=== PATIENT | female | born 1995 | race American Indian/Alaskan Native ===

== ENCOUNTER 2017-12-26 14:31 | Emergency (ER) | payer OTHER ==
--- NOTE | 2017-12-26 16:32 | C.PDOC ---
History Of Present Illness 22 year old female presents to the emergency department with complaints of abdominal cramping and pain associated with nausea and diarrhea for the last week. Patient also reports having vaginal spotting. Patient states that her symptoms began when she sought treatment for her left shoulder cervical radiculopathy She states that she was evaluated by her [employer] Dr. Rashawn Dumont, who suggested that she present to the ED. Time Seen by Provider: 12/26/17 15:45 Chief Complaint (Nursing): Female Genitourinary History Per: Patient History/Exam Limitations: no limitations Onset/Duration Of Symptoms: Days (7) Current Symptoms Are (Timing): Still Present Quality Of Discomfort: Cramping, "Pain" Associated Symptoms: Other (vaginal spotting, cervical radiculopathy) Past Medical History Reviewed: Historical Data, Nursing Documentation, Vital Signs Vital Signs: Last Vital Signs Temp 98.6 F 12/26/17 14:40 Pulse 98 H 12/26/17 14:40 Resp 20 12/26/17 14:40 BP 152/96 H 12/26/17 14:40 Pulse Ox 93 L 12/26/17 18:09 - Medical History PMH: No Chronic Diseases Surgical History: No Surg Hx Family History: States: No Known Family Hx - Social History Hx Alcohol Use: Yes Hx Substance Use: No - Immunization History Hx Tetanus Toxoid Vaccination: Yes Hx Influenza Vaccination: Yes Hx Pneumococcal Vaccination: No Review Of Systems Except As Marked, All Systems Reviewed And Found Negative. Gastrointestinal: Positive for: Abdominal Pain (cramping) Genitourinary: Positive for: Vaginal Bleeding Musculoskeletal: Positive for: Other (left shoulder cervical radiculopathy) Physical Exam - Physical Exam Appears: Non-toxic, No Acute Distress Skin: Warm, Dry Head: Atraumatic, Normacephalic Eye(s): bilateral: Normal Inspection Neck: Normal, Supple Chest: Symmetrical, No Tenderness Cardiovascular: Rhythm Regular, No Murmur Respiratory: Normal Breath Sounds, No Rales, No Rhonchi, No Wheezing Gastrointestinal/Abdominal: Soft, Tenderness (suprapubic), No Guarding, No Rebound Extremity: No Normal ROM (left shoulder and arm ROM limited due to pain) ED Course And Treatment - Laboratory Results Result Diagrams: 12/26/17 17:02 12/26/17 17:02 O2 Sat by Pulse Oximetry: 93 (RA) - CT Scan/US US Transvag Other Rad Studies (CT/US): Read By Radiologist, Radiology Report Reviewed CT/US Interpretation: IMPRESSION: Unremarkable pelvic ultrasound. Medical Decision Making Medical Decision Making: Assessment: DUB Plan: CMP Lipase CBC Urine Culture Urinalysis US Pelvis Repeat pulse ox 96% Spoke to Dr. Rashawn Dumont who requests an ultrasound. Ultrasound no acute pathology. Patient discharged home to follow up with Dr. Rashawn Dumont. Disposition Discussed With Dr.: Kaylyn Dumont Doctor Will See Patient In The: Office Counseled Patient/Family Regarding: Studies Performed, Diagnosis, Need For Followup - Disposition Referrals: Kaylyn Dumont MD [Staff Provider] - Disposition: HOME/ ROUTINE Disposition Time: 18:50 Condition: STABLE Additional Instructions: follow up with Dr. Rashawn Dumont within 2 days call to make an appointment continue medications return to ER if symptoms worsens or progress Instructions: Heavy Periods (DC) Forms: [facility] ([place]), General Discharge Instructions - Clinical Impression Clinical Impression: DUB (dysfunctional uterine bleeding) - Scribe Statement The provider has reviewed the documentation as recorded by the Scribe (Dale Zaldivar) Provider Attestation: All medical record entries made by the Scribe were at my direction and personally dictated by me. I have reviewed the chart and agree that the record accurately reflects my personal performance of the history, physical exam, medical decision making, and the department course for this patient. I have also personally directed, reviewed, and agree with the discharge instructions and disposition.
[2017-12-26 17:08] LABS: EOS % 0.9 % (0.0-4.0); HEMOGLOBIN 13.4 g/dL (11.0-16.0); LYMPH # 1.8 K/uL (1.0-4.3); LYMPH % 39.6 % (20.0-40.0); MEAN CELL VOLUME 86.5 fL (81.0-99.0); MEAN CORPUSCULAR HEMOGLOBIN 29.2 pg (27.0-31.0); MEAN CORPUSCULAR HGB CONC 33.8 g/dL (33.0-37.0); MEAN PLATELET VOLUME 9.3 fL (7.2-11.7); MONO # 0.4 K/uL (0.0-0.8); MONO % 8.9 % (0.0-10.0); NEUT # 2.3 K/uL (1.8-7.0); NEUT % 49.6 % (50.0-75.0); NRBC % 0.1 % (0.0-2.0); RBC 4.58 Mil/uL (3.80-5.20); RED CELL DISTRIBUTION WIDTH 12.5 % (11.5-14.5); WHITE BLOOD COUNT 4.7 K/uL (4.8-10.8)
[2017-12-26 17:24] LABS: ALBUMIN 4.7 g/dL (3.5-5.0); ALT/SGPT 20 U/L (9-52); AST/SGOT 16 U/L (14-36); BLOOD UREA NITROGEN 8 mg/dL (7-17); CALCIUM 9.6 mg/dl (8.6-10.4); GFR NON-AFRICAN AMERICAN > 60; LIPASE 95 U/L (23-300)
[2017-12-26 17:45] LABS: SQUAMOUS EPITHIAL 1 /hpf (0-5); URINE BACTERIA RARE (<OCC); URINE BILIRUBIN NEGATIVE (NEGATIVE); URINE CLARITY Clear (Clear); URINE COLOR Yellow (YELLOW); URINE GLUCOSE (UA) NORMAL (Normal); URINE LEUKOCYTE ESTERASE NEG Leu/uL (Negative); URINE PROTEIN NEGATIVE (NEGATIVE); URINE UROBILINOGEN NORMAL mg/dL (0.2-1.0)
[2017-12-26 17:56] LABS: URINE BLOOD 1+ (NEGATIVE)
--- NOTE | 2017-12-26 18:00 | US ---
Date of service: 12/26/2017 HISTORY: abd. pain COMPARISON: None available. TECHNIQUE: Grayscale, color Doppler and spectral evaluation the pelvis performed transabdominally and transvaginally. FINDINGS: UTERUS: Measures 6.8 x 3.7 x 4.9 cm. Normal in size and appearance. No fibroid or other mass lesion seen. ENDOMETRIUM: Measures 5 mm in diameter. Unremarkable. CERVIX: No cervical abnormality identified. RIGHT OVARY: Measures 3.2 x 2.5 x 3.1 cm. No solid mass. Normal flow. LEFT OVARY: Measures 3.0 x 2.4 x 1.9 cm. No solid mass. Normal flow. FREE FLUID: Small amount of fluid in the cul-de-sac noted. OTHER FINDINGS: None. IMPRESSION: Unremarkable pelvic ultrasound.
[2017-12-26 19:23] VITALS: BP 130/80; PULSE 82; RESP 18; TEMP 98.7; O2SAT 97
== END 2017-12-26 19:49 | disposition home or self-care (01) ==
LOC: C.ER 14:31
DX: N93.8 Other specified abnormal uterine and vaginal bleeding (principal)